=== PATIENT | female | born 1980 | race Caucasian/White ===

== ENCOUNTER 2018-09-13 15:43 | Inpatient (IN) | payer OTHER ==
--- NOTE | 2018-09-13 16:10 | HP ---
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 Mild asthma Pertinent Past Surgical History: None Pertinent Family History: See Records - Antepartal Records Antepartal Records: Reviewed, Complicated by: - age, GDM Review of Systems Constitutional: Uncomfortable CV Complaint: No Respiratory: Shortness of Breath: No Gastrointestinal: Soft Stool Genitourinary: Leaking Fluid Musculoskeletal: Contractions Neurological: No Headache Movement: Normal Exam Allergies/Adverse Reactions: Allergies oxycodone Allergy (Severe, Verified 05/17/18 01:54) Palpitations latex Allergy (Intermediate, Verified 05/17/18 01:54) Rash Sulfa (Sulfonamide Antibiotics) Allergy (Intermediate, Verified 05/17/18 01:54) Rash - Measurements Height: 64 ft Weight: 190 lb Body Mass Index (BMI): 0.2 Pre- Weight: 173 lb - Exam Breast: - - soft, no masses Extremities: No Edema Heart: Normal Rhythm/Heart Sounds HEENT: No Significant Findings Lungs: Clear Bilaterally Reflexes: DTR 2+ Thyroid: No Thyromegaly - Ultrasound/Biophysical Profile Ultrasound Status: Not Done Targeted Exam Findings See L&D Outpatient Visit Provider Note for Findings: N/A Estimated Weight: 7.5 lbs Effacement: 100% Station: +2 Presenting Part: Vertex Membrane Status: SROM EFM Findings - External Monitor Findings Baseline Heart Rate: 120 External Monitor Findings: Accelerations Present, No Pattern of Variable or Late Decelerations, Variability Moderate External Monitor Findings Comment: category 1 Contractions: Strong, 45-90 Seconds Contraction Frequency: every 3 min Assessment/Plan - Assessment at 39 w 5 day in active labor - Obstetrical Risk Factors Obstetrical Risk Factors: Gestational Diabetes - Plan Plan: Admit - Anticipate Vaginal Delivery - Date/Time of Admission Date of Admission: 09/13/18 Time of Admission: 16:00
[2018-09-13 17:19] LABS: ABS Basophils 0.1 10^3/ul (0-0.2); ABS Eosinophils 0 10^3/ul (0-0.6); ABS Lymphocytes 1.2 10^3/ul (1.0-4.8); ABS Monocytes 0.8 10^3/ul (0-0.8); ABS Nucleated RBC 0 10^3/ul; Eosinophil % 0.2 % (0-6); Hematocrit 37 % (35-47); Hemoglobin 12.9 g/dl (12.0-16.0); Mean Corpuscular HGB Conc 35 g/dl (31-36); Mean Corpuscular Hemoglobin 33 pg (27-31); Mean Corpuscular Volume 96 fL (80-97); Mean Platelet Volume 7.4 fL (7.4-10.4); Nucleated Red Blood Cells % 0; Platelet Count 270 10^3/ul (150-450); Red Blood Count 3.88 10^6/ul (4.00-5.40); Red Cell Distribution Width 13 % (10.5-15); White Blood Count 12.2 10^3/ul (3.5-10.8)
[2018-09-13] MEDS ORDERED: Oxytocin in LR* 20 UNITS/1,000 ML BAG IVPB ONE (17:29)
[2018-09-13] MEDS ORDERED: Acetaminophen TAB* 325 MG PO PRN (17:59)
[2018-09-13] MEDS ORDERED: Dibucaine 1% 28.35 GM TUBE PR PRN (17:59)
[2018-09-13] MEDS ORDERED: Witch Hazel PAD* JAR TOPICAL PRN (17:59)
[2018-09-13] MEDS ORDERED: Glycerin ADULT SUPP PR PRN (17:59)
--- NOTE | 2018-09-13 18:13 | PROCNOTE ---
[facility] OB: Delivery Note - Delivery A Date of : 09/13/18 Time of : 17:27 [place] Sex: Female Gestational Age in Weeks and Days at Delivery: 39 Weeks and 5 Days Delivery Method: Spontaneous Vaginal Labor: Spontaneous Did Patient attempt ?: N/A, No Previous Amniotic Fluid: Clear Anesthesia/Analgesia: None Delivered By: Stefania Stone - Nursery Level of Nursery: Regular/Bedside - Perineum Perineal Injury: 1st Degree Perineal Injury Comment: 1st deg perineal, repaired with 3-0 ccg under 1% lidocaine local Perineal Repair: By Delivering Practioner - Events Delivery Events of Note: Pitocin Only After Delivery - Additional Delivery Notes Additional Delivery Notes: SVB LFC, OA, over 1st deg perineal lac. pink with stimulation. Placenta Duarte. FF, IV with pitocin running. Laceration repaired with 3-0 ccg under 1% lidocaine local. Mother and baby in good condition. EBL 150 cc
[2018-09-13] MEDS ORDERED: Oxytocin in LR* 20 UNITS/1,000 ML BAG IVPB SCH (19:00)
[2018-09-13] MEDS ORDERED: Liothyronine TAB* 5 MCG PO SCH (21:00)
[2018-09-13] MEDS ORDERED: Docusate CAP* 100 MG PO SCH (21:00)
[2018-09-14] MEDS: Ibuprofen TAB* 600 MG PO PRN ×2 (01:54→09:33)
[2018-09-14] MEDS ORDERED: Levothyroxine TAB* 100 MCG TAB PO SCH (06:00)
[2018-09-14] MEDS: Liothyronine TAB* 5 MCG PO SCH ×2 (06:24→16:37)
[2018-09-14 08:14] LABS: Hematocrit 35 % (35-47); Mean Corpuscular HGB Conc 34 g/dl (31-36); Mean Corpuscular Hemoglobin 33 pg (27-31); Mean Corpuscular Volume 96 fL (80-97); Mean Platelet Volume 7.7 fL (7.4-10.4); Platelet Count 244 10^3/ul (150-450); Red Blood Count 3.61 10^6/ul (4.00-5.40); Red Cell Distribution Width 14 % (10.5-15); White Blood Count 12.5 10^3/ul (3.5-10.8)
[2018-09-14] MEDS ORDERED: Ferrous Gluconate TAB* 324 MG TAB PO SCH (09:00)
[2018-09-14 13:14] VITALS: BP 117/58
== END 2018-09-14 19:03 | disposition home or self-care (01) | DRG 560 ==
LOC: MCHOBOUT 15:43 → MCHOB 16:03
PROVIDERS: ADMIT Midwife; ATTEND Midwife
PROC: 0HQ9XZZ Repair Perineum Skin, External Approach (ICD-10-PCS; principal; 2018-09-13)
PROC: 10E0XZZ Delivery of Products of Conception, External Approach (ICD-10-PCS; 2018-09-13)
PROC: 4A1HXCZ Monitoring of Products of Conception, Cardiac Rate, External Approach (ICD-10-PCS; 2018-09-13)
DX: O24.429 Gestational diabetes mellitus in childbirth, unspecified control (principal); O22.43 Hemorrhoids in pregnancy, third trimester; Z37.0 Single live birth; O99.284 Endocrine, nutritional and metabolic diseases complicating childbirth; E03.9 Hypothyroidism, unspecified; E28.2 Polycystic ovarian syndrome; Z88.2 Allergy status to sulfonamides; Z91.040 Latex allergy status; Z88.5 Allergy status to narcotic agent; Z3A.39 39 weeks gestation of pregnancy; Z91.010 Allergy to peanuts; O70.0 First degree perineal laceration during delivery
CPT/HCPCS: 36415; 85025; 85027; 86850; 86900; 86901; A9270-GY